=== PATIENT | female | born 1975 | race Caucasian/White ===

== ENCOUNTER 2020-01-03 15:32 | Outpatient (CLI) | payer OTHER, SELFPAY ==
--- NOTE | ~2020-01-03 | MM_ITS ---
EXAMINATION: MM screening [facility] BI w eloise HISTORY: Screening mammogram TECHNIQUE: Craniocaudal and mediolateral oblique 3-D tomosynthesis images were obtained and synthetic 2-D images were generated. CAD analysis was submitted and interpreted. COMPARISON: No prior mammogram is available for comparison at this institution. BREAST PARENCHYMAL COMPOSITION: There are scattered areas of fibroglandular density. FINDINGS: There is no evidence of suspicious mass, calcification, or architectural distortion to sugg est malignancy in either breast. There has been no suspicious interval change. IMPRESSION: 1. No mammographic evidence of malignancy. 2. Recommend routine screening mammography in one year. BI-RADS Category 1: Negative Reviewed, dictated and finalized at location A.
== END 2020-01-03 15:33 | disposition home or self-care (01) ==
LOC: ANHIMG 15:35
PROVIDERS: PCP Family Medicine; Visit Provider Obstetrics & Gynecology
DX: Z12.31 Encounter for screening mammogram for malignant neoplasm of breast (principal)
CPT/HCPCS: 77063; 77067

== ENCOUNTER → 2020-09-25 16:52 | Outpatient (CLI) | payer OTHER, SELFPAY ==
--- NOTE | ~2020-09-25 | XR_ITS ---
EXAMINATION: XR lumbar spine 2-3V, XR sacrum coccyx min 2V EXAM DATE: 09/25/2020 17:23 (accession [id number]), 09/25/2020 17:22 (accession [id number]) INDICATION: Lumbosacral pain, tailbone pain since May 2020. 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 TECHNIQUE: Lumber spine frontal, lateral, lateral L5-S1 projections for interpretation. Additional s acrococcygeal frontal, inlet, lateral projections. There are no prior studies for comparison. FINDINGS: Vertebral body and disc heights are well-maintained. The vertebral bodies are aligned in the AP dimension. There is mild lumbar facet arthropathy. There are no acute fractures identified. Sa ned, sacroiliac joints, sacral arcuate lines are intact. No spondylolysis. There are cholecystectomy clips. IMPRESSION: 1. Mild lumbar facet arthropathy. 2. No acute lumbosacral findings. Reviewed, dictated and finalized at location A. IMPRESSION: 1. Mild lumbar facet arthropathy. 2. No acute lumbosacral findings.
== END ==
PROVIDERS: PCP Family Medicine; Visit Provider Nurse Practitioner Family
DX: M54.5 Low back pain (principal); M43.06 Spondylolysis, lumbar region
CPT/HCPCS: 72100; 72220

== ENCOUNTER 2021-01-15 15:36 | Outpatient (CLI) | payer OTHER, SELFPAY ==
--- NOTE | ~2021-01-15 | MM_ITS ---
EXAMINATION: MM screening [facility] BI w eloise HISTORY: Screening mammogram TECHNIQUE: Craniocaudal and mediolateral oblique 3-D tomosynthesis images were obtained and synthetic 2-D images were generated. CAD analysis was submitted and interpreted. COMPARISON: 01/03/2020, 10/20/2018, 10/09/2017 BREAST PARENCHYMAL COMPOSITION: There are scattered areas of fibroglandular density. FINDINGS: RIGHT BREAST: There is no evidence of suspicious mass, calcification, or architectural distortion to suggest malignancy. There has been no significant interval change. LEFT BREAST: An asymmetry is present in the lower third of the outer breast on the craniocaudal view. IMPRESSION: 1. Left breast asymmetry. 2. Additional mammographic views and possible breast ultrasound are recommended. BI-RADS Category 0: Incomplete: Needs additional imaging evaluation. Reviewed, dictated and finalized at location A. IMPRESSION: 1. Left breast asymmetry. 2. Additional mammographic views and possible breast ultrasound are recommended . BI-RADS Category 0: Incomplete: Needs additional imaging evaluation.
== END 2021-01-15 15:37 | disposition home or self-care (01) ==
LOC: ANHIMG 15:38
PROVIDERS: PCP Family Medicine; Visit Provider Obstetrics & Gynecology
DX: Z12.31 Encounter for screening mammogram for malignant neoplasm of breast (principal); R92.8 Other abnormal and inconclusive findings on diagnostic imaging of breast
CPT/HCPCS: 77063; 77067

== ENCOUNTER → 2022-01-22 07:41 | Outpatient (CLI) | payer OTHER, SELFPAY ==
--- NOTE | ~2022-01-22 | US_ITS ---
US right upper quadrant INDICATION: Status post cholecystectomy. PROCEDURE: Realtime right upper abdominal ultrasound. COMPARISON: No prior studies for comparison. FINDINGS: The pancreas is normal without focal mass or pancreatic ductal dilation. Liver echotexture is normal without focal mass or intrahepatic biliary dilatation. There is normal directional flow i n the portal vein. Gallbladder is surgically absent. Common bile duct measures 7 mm. IMPRESSION: 1: Unremarkable limited abdominal ultrasound postcholecystectomy. Reviewed, dictated and finalized at location A.
== END ==
PROVIDERS: PCP Family Medicine; Visit Provider Family Medicine
DX: R74.8 Abnormal levels of other serum enzymes (principal)
CPT/HCPCS: 76705

== ENCOUNTER 2022-06-14 08:42 | Outpatient (CLI) | payer OTHER, SELFPAY ==
--- NOTE | ~2022-06-14 | MM_ITS ---
EXAMINATION: MM screening [facility] BI w eloise HISTORY: Screening mammogram TECHNIQUE: Craniocaudal and mediolateral oblique 3-D tomosynthesis images were obtained and synthetic 2-D images were generated. CAD analysis was submitted and interpreted. COMPARISON: 01/15/2021, 01/03/2020, 10/20/2018 BREAST PARENCHYMAL COMPOSITION: There are scattered areas of fibroglandular density. FINDINGS: RIGHT BREAST: No suspicious mass, calcification, or architectural distortion are identified to sugges t malignancy. There has been no suspicious interval change. LEFT BREAST: There is a possible mass in the middle/anterior third of the upper outer quadrant of the breast approximately 5.5 cm from the nipple. IMPRESSION: 1. Possible left breast mass. 2. Additional mammographic views and possible breast ultrasound are recommended. BI-RADS Category 0: Incomplete: Needs additional imaging evaluation. Reviewed, dictated and finalized at location A. [employer] IMPRESSION: 1. Possible left breast mass. 2. Additional mammographic views and possible breast ultrasound are recommended . BI-RADS Category 0: Incomplete: Needs additional imaging evaluation.
== END 2022-06-14 08:43 | disposition home or self-care (01) ==
PROVIDERS: PCP Family Medicine; Visit Provider Obstetrics & Gynecology
DX: Z12.31 Encounter for screening mammogram for malignant neoplasm of breast (principal); R92.8 Other abnormal and inconclusive findings on diagnostic imaging of breast
CPT/HCPCS: 77063; 77067

== ENCOUNTER 2022-06-18 12:10 | Outpatient (CLI) | payer OTHER, SELFPAY ==
--- NOTE | ~2022-06-18 | MMUS_ITS ---
EXAMINATION: MM diagnostic [facility] LT w eloise, US breast LT limited HISTORY: Follow-up left breast mass TECHNIQUE: Additional 3-D tomosynthesis images of the left breast were performed and synthetic 2-D im ages were generated. CAD analysis was submitted and interpreted. High resolution Limited left breast ultrasound was performed. COMPARISON: Comparison to multiple prior studies sequentially, with oldest reviewed study dated 10/03. BREAST PARENCHYMAL COMPOSITION: Breast composed of scattered areas of fibroglandular density FINDINGS: MAMMOGRAPHIC FINDINGS: There is a persistent irregular shaped mass measuring approximately 6 mm in the upper central aspect of the left breast anteriorly. ULTRASOUND: Limited left breast ultrasound: At 12:00, 2 cm from the nipple is a slightly irregular shaped solid h ypoechoic mass measuring 7 x 6 x 4 mm without posterior features, parallel orientation and no interna l vascularity. IMPRESSION: 1. Slightly irregular shape 7 mm left breast mass at 12:00, 2 cm from the nipple. 2. Ultrasound-guided left breast biopsy recommended. BI-RADS category 4, suspicious findings. Reviewed, dictated and finalized at location B. NEYMAN PRESSMAN IMPRESSION: 1. Slightly irregular shape 7 mm left breast mass at 12:00, 2 cm from the nippl e. 2. Ultrasound-guided left breast biopsy recommended. BI-RADS category 4, suspicious findings.
== END 2022-06-18 12:11 | disposition home or self-care (01) ==
PROVIDERS: PCP Family Medicine; Visit Provider Obstetrics & Gynecology
DX: N63.25 Unspecified lump in the left breast, overlapping quadrants (principal)
CPT/HCPCS: 76642; 77061; 77065; G0279

== ENCOUNTER 2023-02-17 07:51 | Outpatient (CLI) | payer OTHER, SELFPAY ==
--- NOTE | ~2023-02-17 | US_ITS ---
EXAMINATION: US retroperitoneal duplex ltd DATE: 02/17/2023 08:43 INDICATION: Hypertension. TECHNIQUE: Multiple grayscale, color Doppler, and pulsed Doppler images of the kidneys and renal johnnie violetta were obtained. COMPARISON: None. FINDINGS: The aorta peak systolic velocity is 154 cm/s. The right renal artery peak systolic velocity is 146 cm /s in the proximal segment, 159 cm/s in the mid segment, and 75 cm/s in the distal segment. The left renal artery peak systolic velocity is 125 cm/s in the proximal segment, not measured in the mid segm ent, and 79 cm/s in the distal segment. IMPRESSION: 1. No Doppler evidence of renal artery stenosis. Reviewed, dictated and finalized at location A.
--- NOTE | ~2023-02-17 | US_ITS ---
EXAMINATION: US renal BI DATE: 02/17/2023 08:43 INDICATION: Hypertension. TECHNIQUE: Multiple ultrasound grayscale images of the kidneys were obtained. COMPARISON: None. FINDINGS: The right kidney measures 10.0 x 4.6 x 5.3 cm. The left kidney measures 9.6 x 4.6 x 4.5 cm. The kidne ys demonstrate normal parenchymal echogenicity. There is no hydronephrosis. The bladder is normal. IMPRESSION: 1. Normal kidneys. No hydronephrosis. Reviewed, dictated and finalized at location A.
== END 2023-02-17 07:52 ==
LOC: MICIMG 07:53
PROVIDERS: PCP Family Medicine; Visit Provider Family Medicine
DX: I10 Essential (primary) hypertension (principal)
CPT/HCPCS: 76775; 93976

== ENCOUNTER 2024-09-06 00:16 | Day surgery (SDC) | payer OTHER, SELFPAY ==
[2024-08-24 13:04] VITALS: BMI 30.3
[2024-09-06 08:09] VITALS: BP 121/66; PULSE 76; RESP 18; TEMP 36.2; O2SAT 100
[2024-09-06] MEDS: LACTATED RINGERS 1,000 ML 150 ML IV CONT (08:17)
--- NOTE | 2024-09-06 08:21 | WPDANESEPPF ---
Anes - Initial Pre Proc Eval Procedure: Operation Date: 09/06/24 09:30 Proposed Procedures p Colonoscopy - Harris Willson MD Date/Time: 09/06/24 08:21 Surgeon: Harris Willson MD Pre Op Diagnosis: family hx of cancer, family hx of colon polyps Patient Data Age: 49 Gender: F Height: 1.57 m Weight: 77.3 kg Last Vital Signs Temp 36.2 C L 09/06/24 08:09 Pulse 76 09/06/24 08:09 Resp 18 09/06/24 08:09 BP 121/66 09/06/24 08:09 Pulse Ox 100 09/06/24 08:09 O2 Del Method Room Air 09/06/24 08:09 Allergies Allergy/AdvReac Type Severity Reaction Status Date / Time morphine Allergy Intermediate Itching Verified 09/06/24 08:08 fexofenadine (From Shara) Allergy Vomiting Verified 09/06/24 08:08 Home Medications ?Medication ?Instructions ?Recorded ?Confirmed ?Type valacyclovir 500 mg tablet 500 mg PO DAILY 06/23/19 09/06/24 History chlorthalidone 25 mg tablet 25 mg PO DAILY 08/24/24 09/06/24 History levothyroxine 75 mcg tablet 75 mcg PO DAILY 08/24/24 09/06/24 History (Synthroid) Patient hx anesthesia problems: none Family hx anesthesia problems: none Results Review: All pre-operative results and documents have been reviewed as part of the pre-operative evaluation. [facility] Past Medical History Medical History (Updated 09/06/24 @ 08:21 by Kendall Garcia MD) Obesity Hemorrhoids Endometriosis Ovarian cyst Anemia Surgical History Surgical History (Updated 09/06/24 @ 08:22 by Kendall Garcia MD) H/O: hysterectomy Hx of breast reduction, elective Hx of cholecystectomy Social History Social History (Updated 07/04/19 @ 17:52 by Zuleyma Baez CRNA) Smoking status: Never smoker Alcohol intake: current Drinks per week: 2 Alcohol use details: socially Substance use type: does not use Living arrangements: with family Additional living arrangements comments: with sp Anes - Eval Final PreProcedure Day of Procedure 09/06/24 08:21 Patient weight: obese Heart: regular rate and rhythm Lungs: clear to auscultation Airway: Mallampati scale class II Neurological: alert and oriented Last oral intake: >/= 8 hours ASA classification: II Emergent: no Anesthetic plan: proceed Anesthesia type and monitoring: general GIVS and standard monitoring Results Review: All pre-operative results and documents have been reviewed as part of the pre-operative evaluation. Informed Consent: The patient's anesthetic plan and its attendant risks and benefits were discussed with the patient/family/POA. Questions were solicited and answers provided to the satisfaction of the patient/family/POA.
--- NOTE | 2024-09-06 08:26 | PM.HPGS ---
History of Present Illness History of Present Illness Consent: Risks, benefits, and alternatives have been discussed and questions answered. Patient agrees to proceed with procedure. Chief complaint: family hx of cancer, family hx of colon polyps Narrative: Shanita Akers is a 49 year old female here for screening colonoscopy, last one 2018, family history of colon polyps. Review of Systems Review of Systems: All systems reviewed & are unremarkable except as noted in HPI and below PMFSH Past Medical History Medical History (Updated 09/06/24 @ 08:26 by Harris Willson MD) Colon cancer screening Obesity Hemorrhoids Endometriosis Ovarian cyst Anemia Surgical History Surgical History (Updated 09/06/24 @ 08:22 by Kendall Garcia MD) H/O: hysterectomy Hx of breast reduction, elective Hx of cholecystectomy Social History Social History (Updated 07/04/19 @ 17:52 by Zuleyma Baez CRNA) Smoking status: Never smoker Alcohol intake: current Drinks per week: 2 Alcohol use details: socially Substance use type: does not use Living arrangements: with family Additional living arrangements comments: with sp Meds Home Medications and Allergies Home Medications ?Medication ?Instructions ?Recorded ?Confirmed ?Type valacyclovir 500 mg tablet 500 mg PO DAILY 06/23/19 09/06/24 History chlorthalidone 25 mg tablet 25 mg PO DAILY 08/24/24 09/06/24 History levothyroxine 75 mcg tablet 75 mcg PO DAILY 08/24/24 09/06/24 History (Synthroid) Allergies Allergy/AdvReac Type Severity Reaction Status Date / Time morphine Allergy Intermediate Itching Verified 09/06/24 08:08 fexofenadine (From Shara) Allergy Vomiting Verified 09/06/24 08:08 Vital Signs Vital Signs - 24 hr 09/06/24 08:09 Temperature 97.2 F L Pulse Rate 76 Respiratory Rate 18 Blood Pressure 121/66 Pulse Oximetry 100 Oxygen Delivery Room Air Exam Const: General: comfortable and no acute distress HENMT: Face/Nose/Sinus: Normal nares present Eyes: General: appearance normal, both eyes and all related structures Neck: Neck: no JVD Resp: Auscultation: clear to auscultation bilaterally Cardio: Rate: regular rate Rhythm: regular rhythm GI: Inspection: non-distended GI Palp: Yes Soft to palpation Skin: General skin exam: normal color Neuro: General: gait normal Speech: normal speech Extrem: General: normal to inspection Psych: Mental Status: mental status grossly normal Assessment and Plan Assessment and plan (1) Colon cancer screening: Code(s): Z12.11 - Encounter for screening for malignant neoplasm of colon Status: Acute Assessment and Plan: colonoscopy
[2024-09-06 08:47] VITALS: BP 106/64; PULSE 86; RESP 14; O2SAT 93
[2024-09-06 08:57] VITALS: BP 94/54; PULSE 80; RESP 16; O2SAT 97
[2024-09-06 09:07] VITALS: BP 106/68; PULSE 73; RESP 18; O2SAT 100
== END 2024-09-06 09:13 | disposition home or self-care (01) ==
PROVIDERS: PCP Family Medicine; Visit Provider Internal Medicine Gastroenterology
PROC: 0DJD8ZZ Inspection of Lower Intestinal Tract, Via Natural or Artificial Opening Endoscopic (ICD-10-PCS; CPT 45378; principal; 2024-09-06 09:30)
DX: Z12.11 Encounter for screening for malignant neoplasm of colon (principal); Z80.0 Family history of malignant neoplasm of digestive organs; Z83.719 Family history of colon polyps, unspecified
CPT/HCPCS: 45378; J2003; J2704; J7120